=== PATIENT | female | born 1980 | race Hispanic/Latino ===

== ENCOUNTER 2020-07-23 20:51 | Emergency (ER) | payer SELFPAY ==
[~2020-07-23] VITALS: Ht 157.5 cm; Wt 54.4 kg
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
== END 2020-07-23 23:55 | disposition home or self-care (01) ==
LOC: ER 21:35
DX: R42 Dizziness and giddiness (principal); T48.205A Adverse effect of unspecified drugs acting on muscles, initial encounter
CPT/HCPCS: 70450; 99283